=== PATIENT | female | born 1965 | race Caucasian/White ===

== ENCOUNTER → 2018-09-29 | Outpatient (CLI) | payer BC ==
--- NOTE | 2018-10-09 10:54 | MM ---
Reason for exam: screening (asymptomatic). Last mammogram was performed 1 year and 4 months ago. History: Patient is postmenopausal. Physical Findings: A clinical breast exam by your physician is recommended on an annual basis and results should be correlated with mammographic findings. MG 3D Screening Mammo W/Cad Bilateral CC and MLO view(s) were taken. Prior study comparison: June 03, 2017, mammogram, performed at [place]. March 28, 2016, mammogram, performed at [place]. The breast tissue is heterogeneously dense. This may lower the sensitivity of mammography. Stable benign calcifications. There is no discrete abnormality including area of concern. No significant changes when compared with prior studies. ASSESSMENT: Benign, BI-RAD 2 RECOMMENDATION: Routine screening mammogram of both breasts in 1 year.
== END ==
LOC: RADMAMWWP 16:03
PROVIDERS: ATTEND Family Medicine
DX: Z12.31 Encounter for screening mammogram for malignant neoplasm of breast (principal)
CPT/HCPCS: 77063; 77067

== ENCOUNTER → 2019-08-03 | Outpatient (CLI) | payer BC ==
--- NOTE | 2019-08-04 08:15 | BD ---
EXAMINATION TYPE: Axial Bone Density DATE OF EXAM: 08/03/2019 COMPARISON: NONE CLINICAL HISTORY: N 95.1 Height: 62 IN Weight: 106 LBS FRAX RISK QUESTIONS: Secondary Osteoporosis: Current Tobacco Use: YES RISK FACTORS HISTORY OF: Active: YES Postmenopausal woman: AGE 49 MEDICATIONS: EXAM MEASUREMENTS: Bone mineral densitometry was performed using the rag & bone System. Bone mineral density as measured about the Lumbar spine is: ----- L1-L4(G/cm2): 0.910 T Score Values are as follows: ----- L2: -2.6 ----- L3: -2.6 ----- L4: -1.9 ----- L1-L4: -2.2 Bone mineral density BASELINE Bone mineral density about the R hip (g/cm2): 0.702 Bone mineral density about the L hip (g/cm2): 0.767 T Score values are as follows: -----R Neck: -2.4 -----L Neck: -1.9 -----R Total: -2.2 -----L Total: -1.4 Bone mineral density BASELINE IMPRESSION: Osteoporosis (T Score less than -2.5). There is increased fracture risk and therapy is usually indicated based on age. Re-Screen 1-2 years. NOTE: T-SCORE=SD OF THE YOUNG ADULT MEAN.
== END | disposition home or self-care (01) ==
LOC: RADBDWWP 16:05
PROVIDERS: ATTEND Family Medicine
DX: M81.0 Age-related osteoporosis without current pathological fracture (principal)
CPT/HCPCS: 77080

== ENCOUNTER → 2020-04-13 | Outpatient (CLI) | payer BC ==
--- NOTE | 2020-04-14 13:38 | MM ---
Reason for exam: screening (asymptomatic). Last mammogram was performed 1 year and 6 months ago. History: Patient is postmenopausal. Physical Findings: A clinical breast exam by your physician is recommended on an annual basis and results should be correlated with mammographic findings. MG 3D Screening Mammo W/Cad Bilateral CC and MLO view(s) were taken. Prior study comparison: September 29, 2018, bilateral MG 3d screening mammo w/cad. June 03, 2017, mammogram, performed at [place]. The breast tissue is heterogeneously dense. This may lower the sensitivity of mammography. No significant changes when compared with prior studies. ASSESSMENT: Benign, BI-RAD 2 RECOMMENDATION: Routine screening mammogram of both breasts in 1 year.
== END | disposition home or self-care (01) ==
LOC: RADMAMWWP 07:37
PROVIDERS: ATTEND Family Medicine
DX: Z12.31 Encounter for screening mammogram for malignant neoplasm of breast (principal)
CPT/HCPCS: 77063; 77067

== ENCOUNTER → 2022-01-04 | Outpatient (CLI) | payer OTHER ==
--- NOTE | 2022-01-04 11:00 | XR ---
EXAMINATION TYPE: XR chest 2V DATE OF EXAM: 01/04/2022 COMPARISON: NONE HISTORY: COPD. TECHNIQUE: Frontal and lateral views of the chest are obtained. FINDINGS: Pectus excavatum deformity on lateral view. Small hyperdense roughly 5 mm nodule in the ri ght mid lung laterally and likely anteriorly favors benign etiology. Correlate with old outside x-ray if available to confirm. There is no focal air space opacity, pleural effusion, or pneumothorax seen . The cardiac silhouette size is within normal limits. The osseous structures are intact. IMPRESSION: No acute cardiopulmonary process.
== END | disposition home or self-care (01) ==
LOC: RADXRMAIN 10:40
PROVIDERS: ATTEND Internal Medicine
DX: J44.9 Chronic obstructive pulmonary disease, unspecified (principal)
CPT/HCPCS: 71046

== ENCOUNTER → 2022-01-29 | Outpatient (CLI) | payer OTHER | END | disposition home or self-care (01) | LOC: CPPFTMAIN 11:07 | PROVIDERS: ATTEND Internal Medicine | DX: J44.9 Chronic obstructive pulmonary disease, unspecified (principal) | CPT/HCPCS: 94060; 94726; 94729 ==

== ENCOUNTER → 2022-03-29 | Outpatient (CLI) | payer OTHER ==
[2022-03-29 10:07] VITALS: BP 116/60; PULSE 60; RESP 16; TEMP 98.3
--- NOTE | 2022-03-29 10:56 | P.GSHP ---
History of Present Illness H&P Date: 03/29/22 Chief Complaint: ultrasound abnormality right breast Renea is a 56 year old white female seen in consultation for Dr. Harris regarding an ultrasound abnormality in her right breast. She had a bilateral mammogram on 03-28-22 which was BIRAD 2, however an ultrasound was done of the right breast which revealed a 0.6 by 0.5 cm lesion for which core biopsy was recommended. The patient does not feel any lumps masses or nodules of concern in either breast. She does not complain of any nipple discharge or skin changes. She has had dense breasts for many years and has had evaluation in [place] in the past and became frustrated because of further surveillance. Her mst recent mammogram was 2 years ago. Caffiene: 6-10 cups coffee/day; drinks mountain dew nicotine: smokes 3 cigarettes/day used to smoke 1 PPD for 45 years trying to stop chocolate: none BCP: 1 year in 's Familhy History: sister: bladder cancer brother: of lung cancer Hormonal History: menarche: 11 , breast fed: no, first born at 17 menopause: 50 hormones: none Surgical history: Tubal ligation Bunionectomy right foot Medical history: DJD emphysema Small aortic aneurysm being followed Social History: nicotine: trying to stop; used to smoke 1 PPD alcohol; none drugs: none - Constitutional Constitutional: Reports sweats - EENT Eyes: denies blurred vision, denies pain Ears: deny: decreased hearing, tinnitus Ears, nose, mouth and throat: Denies headache, Denies sore throat - Breasts Breasts: bilateral: as per HPI - Cardiovascular Cardiovascular: Denies chest pain, Denies shortness of breath - Respiratory Comment: Emphysema, patient smoker but trying to stop - Gastrointestinal Gastrointestinal: Denies abdominal pain, Denies diarrhea, Denies nausea, Denies vomiting - Genitourinary (Female) Genitourinary: Reports kidney stones, Denies dysuria, Denies hematuria - Menstruation Menstruation: Reports postmenopausal - Musculoskeletal Musculoskeletal: Reports as per HPI - Integumentary Integumentary: Reports rash - Neurological Neurological: Denies numbness, Denies weakness - Psychiatric Psychiatric: Reports anxiety, Reports depression - Endocrine Endocrine: Reports fatigue - Hematologic/Lymphatic Comment: none - Allergic/Immunologic Allergic/Immunologic: Reports seasonal allergies Past Medical History History of Any Multi-Drug Resistant Organisms: None Reported Smoking Status: Current some day smoker Medications and Allergies Home Medications Medication Instructions Recorded Confirmed Type Sertraline [Zoloft] 50 mg PO DAILY 03/29/22 03/29/22 History Tiotropium [place] [Spiriva] 18 mcg IH DAILY 03/29/22 03/29/22 History Allergies Allergy/AdvReac Type Severity Reaction Status Date / Time No Known Allergies Allergy Unverified 03/29/22 10:04 Surgical - Exam Vital Signs Temp Pulse Resp BP Pulse Ox 98.3 F 60 16 116/60 99 03/29/22 10:04 03/29/22 10:04 03/29/22 10:04 03/29/22 10:04 03/29/22 10:04 - General no distress - Eyes normal ocular movement - Neck trachea midline - Respiratory bilateral ronchi normal respiratory effort - Cardiovascular Rhythm: regular Heart Sounds: normal: S1, S2 - Abdomen Abdomen: soft, non tender, no guarding, no rigid, no rebound - Neurologic no disoriented, no combative - Musculoskeletal normal gait - Psychiatric Breast Exam: BRA: 36B Inspection: grade 2/3 ptosis bilateral Palpation: Right breast: Post positional exam fibrocystic changes, no discrete dominant masses or nodules of concern, nodularity at the 9 o'clock position is most likely fibrocystic in nature Right axilla: No adenopathy of concern Left breast: Multi-positional exam fibrocystic changes no discrete dominant masses or nodules of concern Left axilla: No adenopathy of concern Results Patient had bilateral mammogram and bilateral breast ultrasound performed on . A 0.6 x 0.5 cm round circumscribed lesion was seen at the 9 o'clock position of the right breast on ultrasound but not seen on mammogram. It was recommended the patient undergo a core biopsy either radiologist. Assessment and Plan Assessment: Impression: DJD emphysema rash over back abnormal ultrasound right breast fibrocystic breast changes Plan: ultrasound core biopsy of right breast 9 OClock follow up after biopsy Risk and benefit of the procedure discussed with the patient. She understands and wishes to proceed. CC: Dr. Harris
== END | disposition home or self-care (01) ==
LOC: WWCWWP 09:54
PROVIDERS: ATTEND Surgery
DX: Z53.9 Procedure and treatment not carried out, unspecified reason (principal)

== ENCOUNTER → 2022-05-31 | Day surgery (SDC) | payer OTHER ==
--- NOTE | 2022-06-06 11:10 | MM ---
Reason for Exam: Post Procedure Mammogram. Last mammogram was performed 2 year(s) and 2 month(s) ago. Patient History: Menarche at age 10. First Full-Term at age 17. Postmenopausal. Risk Values: Zee 5 year model risk: 1.0%. NCI Lifetime model risk: 5.5%. Prior Study Comparison: 06/03/2017 Screening Mammogram, [place]. 09/29/2018 Bilateral Screening Mammogram, [facility]. 04/13/2020 Bilateral Screening Mammogram, [facility]. Tissue Density: Right: The breast tissue is heterogeneously dense. This may lower the sensitivity of mammography. Pathology Description: Location: 9 o'clock, upper outer quadrant. Marker Left Behind. Needle Type: Mammotome Cores: 3 Skin Nicks: 1 Gauge: 13 The procedure of ultrasound guided core biopsy was explained to the patient. Benefits, alternatives, and risks were discussed. An informed consent was then obtained. A timeout was performed. The patient was placed in supine positioning for imaging and for the procedure. The overlying skin was prepped and draped in usual sterile fashion. Lidocaine was used as anesthetic into the skin and subcutaneous tissue up to area of concern in the right breast. A small skin donnie was made with surgical scalpel. Under ultrasound guidance, a 12-gauge vacuum assisted biopsy gun device was used to obtain 3 core samples. A biopsy clip was left in lesion. Butterfly Hydromark core marker was placed. The patient tolerated the procedure well without any immediate complication. The patient was kept in the radiology department for short stay after the procedure and then discharged home in stable condition. Postprocedure mammogram: The patient was transferred to mammography for physician ordered post procedure mammogram for clip placement verification. Marker is in the expected region for the biopsy. Impression: Successful ultrasound guided core biopsy of area of concern in the right breast, full pathology results to follow. Recommendations: 1. Recommendations are pending pathology results. Pathology Results: Result: Benign, Fibrocystic change. RIGHT BREAST, 9:00, ULTRASOUND GUIDED NEEDLE CORE BIOPSY: Fibrocystic changes including cysts, fibrosis and apocrine metaplasia. Overall Assessment: Benign Assessment: MG diagnostic mammo RT wo CAD - Right: Benign, BI-RAD 2. Management: Diagnostic Breast Ultrasound of the right breast in 6 months. Electronically signed and approved by: Smooth Morrison D.O. Radiologis
== END ==
LOC: RADUSWWP 09:56
PROVIDERS: ATTEND Surgery
DX: N60.81 Other benign mammary dysplasias of right breast (principal); N60.11 Diffuse cystic mastopathy of right breast
CPT/HCPCS: 88305; 77065; 19083; A4648

== ENCOUNTER → 2022-06-07 | Outpatient (CLI) | payer OTHER ==
[2022-06-07 10:59] VITALS: BP 120/60; PULSE 85; RESP 17; TEMP 96.9
--- NOTE | 2022-06-07 11:11 | P.PN ---
Subjective Progress Note Date: 06/07/22 Principal diagnosis: fibrocystic breast changes Renea is a 57 year old white female status post ultrasound core biopsy of the right breast on 05-31-22. This was felt to be benign concordant. She tolerated the biopsy without difficulty. Objective - Vital Signs Vital signs: Vital Signs Temp 96.9 F L 06/07/22 10:57 Pulse 85 06/07/22 10:57 Resp 17 06/07/22 10:57 BP 120/60 06/07/22 10:57 Pulse Ox 97 06/07/22 10:57 FiO2 Intake & Output 06/06/22 06/07/22 06/07/22 18:59 06:59 18:59 Weight 52.163 kg - Constitutional General appearance: Present: cooperative - EENT Eyes: Present: EOMI ENT: Present: hearing grossly normal - Neck Neck: Present: normal ROM - Respiratory Respiratory: bilateral: CTA - Cardiovascular Heart sounds: normal: S1, S2 - Integumentary Integumentary Comment(s): Mild ecchymosis of biopsy site right breast no evidence of infection Integumentary: Present: normal turgor Assessment and Plan Assessment: Impression: Area of concern right breast status post core biopsy benign felt to be benign concordant by Dr. Morrison Plan: Repeat right breast mammogram and ultrasound in 6 months with physician exam at that time Cc: Dr. Harris
== END ==
LOC: WWCWWP 10:44
PROVIDERS: ATTEND Surgery
DX: Z98.890 Other specified postprocedural states (principal)

== ENCOUNTER → 2022-07-15 | Outpatient (CLI) | payer OTHER ==
--- NOTE | 2022-07-15 12:27 | XR ---
EXAMINATION TYPE: XR chest 2V DATE OF EXAM: 07/15/2022 12:21 PM COMPARISON: Chest radiographs from 01/04/2022 TECHNIQUE: XR chest 2V Frontal and lateral views of the chest. CLINICAL INDICATION:Female, 57 years old with history of R05.9 COUGH; FINDINGS: Lungs/Pleura: There is no evidence of pleural effusion, focal consolidation, or pneumothorax. Stable calcified granuloma in the right midlung. Pulmonary vascularity: Unremarkable. Heart/mediastinum: Cardiomediastinal silhouette is unremarkable. Musculoskeletal: No acute osseous pathology. Pectus excavatum deformity are demonstrated. IMPRESSION: No acute cardiopulmonary disease/process. No significant change from prior examination.
== END | disposition home or self-care (01) ==
LOC: RADXRMAIN 12:11
PROVIDERS: ATTEND Internal Medicine
DX: R05.9 Cough, unspecified (principal)
CPT/HCPCS: 71046

== ENCOUNTER → 2022-10-18 | Outpatient (CLI) | payer OTHER ==
--- NOTE | 2022-10-18 14:20 | XR ---
EXAMINATION TYPE: XR lumbar spine 2 or 3V DATE OF EXAM: 10/18/2022 COMPARISON: None HISTORY: Chronic low back pain TECHNIQUE: 3 view lumbar spine FINDINGS: There are 5 lumbar-type vertebral bodies. Pedicles are intact. Disc heights are preserved. Vertebral body heights are preserved. Vascular calcifications within the aorta. There is a mild scoli osis with convexity to the right centered at L3. In the lateral projection there is a calcification a t the level of L3 of uncertain etiology could be renal or ureteral stone. Stool identified in the fro ntal projection IMPRESSION: 1. No acute osseous abnormality lumbar spine. 2. There may be a small calcification in the approximate level of L3 on the lateral projections.
== END | disposition home or self-care (01) ==
LOC: RADXRMAIN 13:48
PROVIDERS: ATTEND Internal Medicine
DX: M54.50 Low back pain, unspecified (principal); G89.29 Other chronic pain
CPT/HCPCS: 72100

== ENCOUNTER → 2022-11-07 | Outpatient (CLI) | payer OTHER ==
--- NOTE | 2022-11-07 17:49 | US ---
EXAMINATION TYPE: US kidneys/renal and bladder DATE OF EXAM: 11/07/2022 COMPARISON: NONE CLINICAL INDICATION: Female, 57 years old with history of N20.0 NEPHROLITHIASIS; Hx of kidney stones EXAM MEASUREMENTS: Right Kidney: 8.1x3.8x4.7 cm Left Kidney: 10.2x5.5x4.7 cm Right Kidney: No hydronephrosis or masses seen Left Kidney: No hydronephrosis or masses seen Bladder: wnl Bilateral Jets seen: Yes IMPRESSION: No hydronephrosis.
--- NOTE | 2022-11-07 19:40 | MR ---
EXAMINATION TYPE: MR lumbar spine wo con DATE OF EXAM: 11/07/2022 COMPARISON: Lumbar spine radiograph 10/18/2022 HISTORY: Low back pain into left leg TECHNIQUE: Multiplanar, multisequence images of the lumbar spine were acquired without IV contrast. FINDINGS: Lumbar segments are intact. No paraspinal masses are identified. Conus medullaris has a normal appe arance. 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 Rudimentary disc at S1-S2. Disc desiccation is present at L3-4, L4-5, L5-S1. T12-L1: No herniation, protrusion or disc bulging. No canal stenosis is present. Foramina are paten t bilaterally. L1-L2: No herniation, protrusion or disc bulging. No canal stenosis is present. Foramina are patent bilaterally. L2-L3: No herniation, protrusion or disc bulging. No canal stenosis is present. Foramina are patent bilaterally. L3-L4: No herniation, protrusion or disc bulging. No canal stenosis is present. Foramina are patent bilaterally. L4-L5: Broad-based disc bulge without significant central canal stenosis. Mild bilateral facet arthro michael. Foramina are patent bilaterally. L5-S1: Broad-based disc bulge without significant central canal stenosis. Minimal bilateral facet art hropathy. The neural foramina are patent bilaterally. IMPRESSION: 1. No disc herniation or significant central canal stenosis. 2. Mild degenerative disc disease at L4-L5 and L5-S1.
== END | disposition home or self-care (01) ==
LOC: RADUSWWP 14:32
PROVIDERS: ATTEND Internal Medicine
DX: N20.0 Calculus of kidney (principal); M54.40 Lumbago with sciatica, unspecified side; M51.37 Other intervertebral disc degeneration, lumbosacral region
CPT/HCPCS: 72148; 76770

== ENCOUNTER → 2022-12-26 | Outpatient (CLI) | payer OTHER ==
--- NOTE | 2022-12-26 11:05 | MM ---
Reason for Exam: Follow-up at short interval from prior study. Last screening mammogram was performed 9 month(s) ago. Patient History: Menarche at age 10. First Full-Term at age 17. Postmenopausal. 05/31/2022, Benign US biopsy breast VAD RT on the right side. Risk Values: Zee 5 year model risk: 1.2%. NCI Lifetime model risk: 6.4%. Prior Study Comparison: 03/28/2016 Screening Mammogram, [place]. 06/03/2017 Screening Mammogram, [place]. 09/29/2018 Bilateral Screening Mammogram, [facility]. 04/13/2020 Bilateral Screening Mammogram, [facility]. 05/31/2022 Right MG diagnostic mammo RT wo CAD, [facility]. Tissue Density: Right: The breast tissue is heterogeneously dense. This may lower the sensitivity of mammography. Findings: Analyzed By CAD. No new suspicious mass or group of calcifications within the right breast. Vascular benign calcifications demonstrated. Previous mammotome biopsy within the right breast. Overall Assessment: Incomplete: need additional imaging evaluation, BI-RAD 0 Management: Diagnostic Breast Ultrasound of the right breast. A clinical breast exam by your physician is recommended on an annual basis and results should be correlated with mammographic findings. This exam should not preclude additional follow-up of suspicious palpable abnormalities. Results were given to the patient verbally at the time of exam. Note on Zee scores and lifetime risk: 1. A Zee score greater than 3% is considered moderate risk. If this is the case, consider specialist referral to assess eligibility for a risk reducing agent. If overall lifetime risk for the development of breast cancer is 20% or higher, the patient may qualify for future screening with alternating mammogram and breast MRI. Electronically signed and approved by: Mike Marie D.O.
--- NOTE | 2022-12-26 11:22 | USB ---
Patient History: Menarche at age 10. First Full-Term at age 17. Postmenopausal. 05/31/2022, Benign US biopsy breast VAD RT on the right side. Risk Values: Zee 5 year model risk: 1.2%. NCI Lifetime model risk: 6.4%. Technique: Method: Targeted. Prior Study Comparison: 09/29/2018 Bilateral Screening Mammogram, [facility]. 04/13/2020 Bilateral Screening Mammogram, [facility]. 05/31/2022 Right MG diagnostic mammo RT wo CAD, [facility]. Findings: The lateral section of the breast of the right breast, the axilla of the right breast and the retroareolar of the right breast were scanned. Targeted ultrasound of the right breast at 9:00 2 cm from the nipple at prior site of biopsy was performed. Additional evaluation of the nipple and axilla was performed. Previously seen mass within the right breast at 9:00 2 cm from the nipple is not visualized with only the biopsy clip identified. Overall Assessment: Benign, BI-RAD 2 Management: Screening Mammogram of both breasts in 6 months. A clinical breast exam by your physician is recommended on an annual basis and results should be correlated with mammographic findings. This exam should not preclude additional follow-up of suspicious palpable abnormalities. Results were given to the patient verbally at the time of exam. Electronically signed and approved by: Mike Marie D.O.
[2022-12-26 20:04] LABS: Blood Urea Nitrogen 6.3 mg/dL (9.0-27.0); C Reactive Protein <0.30 mg/dL (0.00-0.80); Chloride 105 mmol/L (96-109); Chol/HDL Ratio 4.71 Ratio; Glucose 82 mg/dL (70-110); LDL Cholesterol,Calculated 141.4 mg/dL (0.0-131.0); Potassium 4.2 mmol/L (3.5-5.5); Sodium 143 mmol/L (135-145); Uric Acid 3.1 mg/dL (2.9-7.7)
[2022-12-26 20:05] LABS: ALT 15 U/L (8-44); AST 21 U/L (13-35); Albumin 4.5 d/dL (3.8-4.9); Albumin/Globulin Ratio 2.05 Ratio (1.60-3.17); Alkaline Phosphatase 71 U/L (41-126); Calcium 9.3 mg/dL (8.7-10.3); Carbon Dioxide 24.5 mmol/L (21.6-31.8); Globulin 2.2 d/dL (1.6-3.3); Total Bilirubin 0.3 mg/dL (0.3-1.2); Total Protein 6.7 d/dL (6.2-8.2)
[2022-12-26 20:22] LABS: Albumin 4.4 d/dL (3.8-4.9); Protein, Total 6.5 d/dL (6.2-8.2)
[2022-12-26 21:20] LABS: Basophils # (A) 0.06 X 10*3/uL (0.00-0.10); Basophils % (A) 0.9 %; Eosinophils % (A) 1.6 %; HCT 43.6 % (37.2-46.3); HGB 13.6 d/dL (12.0-15.0); Lymphocytes # (A) 1.63 X 10*3/uL (0.90-5.00); Lymphocytes % (A) 25.4 %; MCH 29.9 pg (27.0-32.0); MCHC 31.2 d/dL (32.0-37.0); MCV 95.8 FL (80.0-97.0); Mean Platelet Volume 12.3 FL (9.5-12.2); Monocytes # (A) 0.32 X 10*3/uL (0.20-1.00); NRBC Per 100 WBC 0 X 10*3/uL (0.00-0.01); Neutrophils # (A) 4.28 X 10*3/uL (1.80-7.70); Neutrophils % (A) 66.8 %; Platelet Count 268 X 10*3/uL (140-440); RBC 4.55 X 10*6/uL (4.10-5.20); RDW 13.3 % (11.5-14.5); WBC 6.41 X 10*3/uL (4.50-10.00)
[2022-12-26 21:38] LABS: Erythrocyte Sedimentation Rate 24 mm/Hr (0-30)
[2022-12-26 22:58] LABS: Gliadin AB IgA, Deaminated Negative (Negative); Gliadin AB IgA, Unit 2.3 U/mL; Gliadin AB IgG, Deaminated Negative (Negative); Gliadin AB IgG, Unit <0.4 U/mL
[2022-12-27 20:39] LABS: Gamma Globulin 0.64 d/dL (0.70-1.50)
== END | disposition home or self-care (01) ==
LOC: RADMAMWWP 10:23
PROVIDERS: ATTEND Surgery
DX: R92.8 Other abnormal and inconclusive findings on diagnostic imaging of breast (principal); Z78.0 Asymptomatic menopausal state; N20.0 Calculus of kidney; M81.0 Age-related osteoporosis without current pathological fracture; M54.40 Lumbago with sciatica, unspecified side; K52.9 Noninfective gastroenteritis and colitis, unspecified
CPT/HCPCS: 80061; 80053; 85652; 84443; 82607; 82746; 84550; 85025; 86140; 84165; 82306; 83516 ×4; 77065; 76642; G0279; 77061

== ENCOUNTER → 2023-07-07 | Outpatient (CLI) | payer OTHER ==
--- NOTE | 2023-07-07 14:31 | XR ---
EXAMINATION TYPE: XR chest 2V DATE OF EXAM: 07/07/2023 COMPARISON: 07/15/2022 INDICATION: Cough COPD TECHNIQUE: Frontal and lateral views of the chest are obtained. FINDINGS: The heart size is normal. The pulmonary vasculature is normal. There is hyperinflation with an increased AP diameter compatible with COPD. Punctate densities within the periphery of the right mid lung, stable from comparison. IMPRESSION: 1. COPD. 2. Stable appearing punctate nodule peripheral right midlung. Follow-up exam in 6 months is recommend ed.
== END | disposition home or self-care (01) ==
LOC: RADXRMAIN 13:22
PROVIDERS: ATTEND Internal Medicine
DX: J44.1 Chronic obstructive pulmonary disease with (acute) exacerbation (principal); R91.1 Solitary pulmonary nodule
CPT/HCPCS: 71046

== ENCOUNTER → 2023-07-15 | Outpatient (CLI) | payer OTHER ==
--- NOTE | 2023-07-16 19:55 | MM ---
Reason for Exam: Screening (asymptomatic). Last mammogram was performed 1 year(s) and 4 month(s) ago. Patient History: Menarche at age 10. First Full-Term at age 17. Postmenopausal. 05/31/2022, Benign US biopsy breast VAD RT on the right side. Risk Values: Zee 5 year model risk: 1.2%. NCI Lifetime model risk: 6.3%. Prior Study Comparison: 03/28/2022 Bilateral Diagnostic Mammogram, [facility]. 05/31/2022 Right MG diagnostic mammo RT wo CAD, [facility]. 12/26/2022 Right MG 3D diag mammo w/cad RT, [facility]. Tissue Density: The breast tissue is heterogeneously dense. This may lower the sensitivity of mammography. Findings: Analyzed By CAD. Unchanged asymmetric density superiorly left MLO view. There is no suspicious group of microcalcifications or new suspicious mass in either breast. Overall Assessment: Benign, BI-RAD 2 Management: Screening Mammogram of both breasts in 1 year. . Patient should continue monthly self-breast exams. A clinical breast exam by your physician is recommended on an annual basis. This exam should not preclude additional follow-up of suspicious palpable abnormalities. Note on Zee scores and lifetime risk: 1. A Zee score greater than 3% is considered moderate risk. If this is the case, consider specialist referral to assess eligibility for a risk reducing agent. 2. If overall lifetime risk for the development of breast cancer is 20% or higher, the patient may qualify for future screening with alternating mammogram and breast MRI. Electronically signed and approved by: Debra Myers M.D. Radiologist
== END | disposition home or self-care (01) ==
LOC: RADMAMWWP 12:19
PROVIDERS: ATTEND Internal Medicine
DX: Z12.31 Encounter for screening mammogram for malignant neoplasm of breast (principal); Z78.0 Asymptomatic menopausal state
CPT/HCPCS: 77063; 77067

== ENCOUNTER → 2023-07-26 | Outpatient (CLI) | payer OTHER ==
--- NOTE | 2023-07-26 15:28 | MR ---
EXAMINATION TYPE: MR cervical spine wo con DATE OF EXAM: 07/26/2023 COMPARISON: None HISTORY: Neck pain, RUE radiculopathy. CONTRAST: Performed utilizing 0 mL intravenous Gadavist gadolinium contrast. TECHNIQUE: Multiplanar multiecho imaging on a 3.0 Faviola magnet is performed through the cervical spin e. FINDINGS: The craniovertebral junction is normal. Vertebral body alignment is normal. C7-T1: No focal disc herniation or significant disc bulge is evident. No spinal canal stenosis or n eural foraminal stenosis is present. C6-7: Disc bulge has mild intrathecal sac compression. No cord contact is evident. No spinal canal st enosis present. Neural foramen are patent.. C5-6: Broad-based disc bulges moderate anterior thecal sac compression. No cord contact or spinal can al stenosis present. Uncovertebral joint hypertrophy is present with moderate bilateral foraminal kiki nosis.. C4-5: There is a right paracentral disc bulge with moderate intrathecal sac compression. No AP spinal canal stenosis present. No cord contact is evident. Neural foramen are patent.. C3-4: There is a central subligamentous disc herniation without cord contact or spinal canal stenosis . This is [id number] anterior thecal sac impression. Some additional broad-based disc bulge gre ater in the left paracentral region has minimal anterior thecal sac compression. No cord contact or s olegario canal stenosis is present.. C2-3: No focal disc herniation or significant disc bulge is evident. No spinal canal stenosis or aminah ral foraminal stenosis is present. IMPRESSION: 1. Disc bulging with anterior thecal sac impression C3-4 through C6-7. This may be greatest at the C5 -6 level without cord contact or spinal canal stenosis. 2. Foraminal narrowing greatest at moderate C5-6 bilaterally.
== END | disposition home or self-care (01) ==
LOC: RADMRIMAIN 14:31
PROVIDERS: ATTEND Internal Medicine
DX: M99.71 Connective tissue and disc stenosis of intervertebral foramina of cervical region (principal); M50.11 Cervical disc disorder with radiculopathy, high cervical region
CPT/HCPCS: 72141

== ENCOUNTER 2023-10-31 12:27 | Emergency (ER) | payer OTHER ==
[2023-10-31 13:16] VITALS: BP 133/83; PULSE 60; RESP 20; TEMP 98.1
--- NOTE | 2023-10-31 13:20 | ED ---
General Adult HPI - General Chief complaint: Chest Pain Stated complaint: Chest pain,Vomiting Time Seen by Provider: 10/31/23 12:35 Source: patient, RN notes reviewed, old records reviewed Mode of arrival: ambulatory Limitations: no limitations - History of Present Illness Initial comments: This is a 58-year-old female who presents to the emergency department stating she has really bad reflux. Patient states getting much worse and now it is up into her chest. Patient states she has some chest discomfort and she is concerned that it could potentially be her heart and she is just calling her reflux. Patient states that it is a burning sensation. Patient denies any diaphoretic episode patient denies any shortness of breath or difficulty breathi ng. Patient denies any nausea. Patient has any back pain. Patient Nuys any abdominal pain. Patient Nuys any recent fever chills or cough. - Related Data Home Medications Medication Instructions Recorded Confirmed Sertraline [Zoloft] 50 mg PO DAILY 03/29/22 06/07/22 Tiotropium Moro [Spiriva] 18 mcg IH DAILY 03/29/22 06/07/22 Allergies Allergy/AdvReac Type Severity Reaction Status Date / Time No Known Allergies Allergy Unverified 10/31/23 12:36 Review of Systems ROS Statement: Those systems with pertinent positive or pertinent negative responses have been documented in the HPI. ROS Other: All systems not noted in ROS Statement are negative. Past Medical History Past Medical History: COPD, GERD/Reflux History of Any Multi-Drug Resistant Organisms: None Reported Past Surgical History: Tubal Ligation Additional Past Surgical History / Comment(s): Right foot surgery Past Anesthesia/Blood Transfusion Reactions: No Reported Reaction Past Psychological History: Anxiety, Depression Smoking Status: Former smoker Past Alcohol Use History: None Reported Past Drug Use History: Marijuana General Exam - General Exam Comments Initial Comments: GENERAL: Patient is well-developed and well-nourished. Patient is nontoxic and well- hydrated and is in mild distress. ENT: Neck is soft and supple. No significant lymphadenopathy is noted. Oropharynx is clear. Moist mucous membranes. Neck has full range of motion without eliciting any pain. EYES: The sclera were anicteric and conjunctiva were pink and moist. Extraocular movements were intact and pupils were equal round and reactive to light. Eyelids were unremarkable. PULMONARY: Unlabored respirations. Good breath sounds bilaterally. No audible rales rhonchi or wheezing was noted. CARDIOVASCULAR: There is a regular rate and rhythm without any murmurs gallops or rubs. ABDOMEN: Soft and nontender with normal bowel sounds. SKIN: Skin is clear with no lesions or rashes and otherwise unremarkable. NEUROLOGIC: Patient is alert and oriented x3. Cranial nerves II through XII are grossly intact. Motor and sensory are also intact. Normal speech, volume and content. Symmetrical smile. MUSCULOSKELETAL: Normal extremities with adequate strength and full range of motion. LYMPHATICS: No significant lymphadenopathy is noted PSYCHIATRIC: Normal psychiatric evaluation. Limitations: no limitations Course Vital Signs 10/31/23 10/31/23 12:34 13:04 Temperature 98.1 F Pulse Rate 60 Pulse Rate [ [address] ] Respiratory 20 Rate Blood Pressure 133/83 O2 Sat by Pulse 99 Oximetry Medical Decision Making - Medical Decision Making EKG is interpreted by myself. EKG shows a sinus bradycardia 55 bpm parables 154 QRS of 78 QT is 434 QTc is 423. Patient's EKG shows no ST segment elevation or depression. Was pt. sent in by a medical professional or institution (, PA, PHOTO TUBE ASSEMBLER, urgent care, hospital, or intermediate...) When possible be specific @ -No Did you speak to anyone other than the patient for history (EMS, parent, family, police, friend...)? What history was obtained from this source @ -No Did you review nursing and triage notes (agree or disagree)? Why? @ -I reviewed and agree with nursing and triage notes Were old charts reviewed (outside hosp., previous admission, EMS record, old EKG, old radiological studies, urgent care reports/EKG's, intermediate records)? Report findings @ -No old charts were reviewed Differential Diagnosis (chest pain, altered mental status, abdominal pain women, abdominal pain men, vaginal bleeding, weakness, fever, dyspnea, syncope, headache, dizziness, GI bleed, back pain, seizure, CVA, palpatations, mental health, musculoskeletal)? @ -Differential Chest Pain: Stable Angina, Unstable Angina, STEMI, NSTEMI Aortic Dissection, Pneumothorax, Musculoskeletal, Esophageal Spasm GERD, Cholecystitis, Pancreatitis, Zoster, this is not meant to be an all-inclusive list. EKG interpreted by me (3pts min.). @ -As above X-rays interpreted by me (1pt min.). @ -Chest x-ray shows no acute normality CT interpreted by me (1pt min.). @ -None done U/S interpreted by me (1pt. min.). @ -None done What testing was considered but not performed or refused? (CT, X-rays, U/S, labs)? Why? @ -None What meds were considered but not given or refused? Why? @ -None Did you discuss the management of the patient with other professionals (professionals i.e. Dr., PA, PHOTO TUBE ASSEMBLER, lab, RT, psych nurse, addiction social worker, it manager, teacher, bsa/aml compliance officer, case managers)? Give summary @ -No Was smoking cessation discussed for >3mins.? @ -No Was critical care preformed (if so, how long)? @ -No Were there social determinants of health that impacted care today? How? (Homelessness, low income, unemployed, alcoholism, drug addiction, transportation, low edu. Level, literacy, decrease access to med. care, [facility], rehab)? @ -No Was there de-escalation of care discussed even if they declined (Discuss DNR or withdrawal of care, Hospice)? DNR status @ -No What co-morbidities impacted this encounter? (DM, HTN, Smoking, COPD, CAD, Cancer, CVA, ARF, Chemo, Hep., AIDS, mental health diagnosis, sleep apnea, morbid obesity)? @ -None Was patient admitted / discharged? Hospital course, mention meds given and route, prescriptions, significant lab abnormalities, going to OR and other pert inent info. @ -Patient's lab work showed an elevated troponin. Went back and spoke with the patient and told her she needed to stay and be put on blood thinners and see the set up inspector she stated she had no one to watch her kids and kids could not be trusted by himself we had a long conversation I told her that if she goes home she could have a massive heart attack and potentially she stated she understood but she could not find anyone to watch her kids so she had to leave. Patient was signed out AMA Undiagnosed new problem with uncertain prognosis? @ -No Drug Therapy requiring intensive monitoring for toxicity (Heparin, Nitro, Insulin, Cardizem)? @ -No Were any procedures done? @ -No Diagnosis/symptom? @ -NSTEMI Acute, or Chronic, or Acute on Chronic? @ -Acute Uncomplicated (without systemic symptoms) or Complicated (systemic symptoms)? @ -Complicated Side effects of treatment? @ -No Exacerbation, Progression, or Severe Exacerbation? @ -No Poses a threat to life or bodily function? How? (Chest pain, [place], [place], pneumonia, PE, COPD, DKA, ARF, appy, cholecystitis, CVA, Diverticulitis, Homicidal, Suicidal, threat to staff... and all critical care pts) @ -Yes this could lead to an [place] and - Lab Data Result diagrams: 10/31/23 13:35 10/31/23 13:35 Lab Results 10/31/23 10/31/23 10/31/23 Range/Units 13:35 13:35 13:35 WBC 5.7 (3.8-10.6) k/uL RBC 4.22 (3.80-5.40) m/uL Hgb 12.7 (11.4-16.0) gm/dL Hct 38.5 (34.0-46.0) % MCV 91.2 (80.0-100.0) fL MCH 30.1 (25.0-35.0) pg MCHC 33.0 (31.0-37.0) g/dL RDW 12.9 (11.5-15.5) % Plt Count 256 (150-450) k/uL MPV 8.5 Neutrophils % 79 % Lymphocytes % 14 % Monocytes % 4 % Eosinophils % 1 % Basophils % 1 % Neutrophils # 4.5 (1.3-7.7) k/uL Lymphocytes # 0.8 L (1.0-4.8) k/uL Monocytes # 0.2 (0-1.0) k/uL Eosinophils # 0.1 (0-0.7) k/uL Basophils # 0.0 (0-0.2) k/uL PT 10.3 (10.0-12.5) sec INR 0.9 (<1.2) APTT 24.5 (22.0-30.0) sec D-Dimer 0.29 (<0.60) mg/L FEU Sodium 137 (137-145) mmol/L Potassium 3.9 (3.5-5.1) mmol/L Chloride 106 (98-107) mmol/L Carbon Dioxide 25 (22-30) mmol/L Anion Gap 6 mmol/L BUN 5 L (7-17) mg/dL Creatinine 0.51 L (0.52-1.04) mg/dL Est GFR (CKD-EPI)AfAm >90 (>60 ml/min/1.73 sqM) Est GFR (CKD-EPI)NonAf >90 (>60 ml/min/1.73 sqM) Glucose 88 (74-99) mg/dL Calcium 9.3 (8.4-10.2) mg/dL Magnesium 1.8 (1.6-2.3) mg/dL Total Bilirubin 0.4 (0.2-1.3) mg/dL AST 25 (14-36) U/L ALT 14 (4-34) U/L Alkaline Phosphatase 85 (38-126) U/L Troponin I (0.000-0.034) ng/mL Total Protein 6.4 (6.3-8.2) g/dL Albumin 3.9 (3.5-5.0) g/dL 10/31/23 Range/Units 13:35 WBC (3.8-10.6) k/uL RBC (3.80-5.40) m/uL Hgb (11.4-16.0) gm/dL Hct (34.0-46.0) % MCV (80.0-100.0) fL MCH (25.0-35.0) pg MCHC (31.0-37.0) g/dL RDW (11.5-15.5) % Plt Count (150-450) k/uL MPV Neutrophils % % Lymphocytes % % Monocytes % % Eosinophils % % Basophils % % Neutrophils # (1.3-7.7) k/uL Lymphocytes # (1.0-4.8) k/uL Monocytes # (0-1.0) k/uL Eosinophils # (0-0.7) k/uL Basophils # (0-0.2) k/uL PT (10.0-12.5) sec INR (<1.2) APTT (22.0-30.0) sec D-Dimer (<0.60) mg/L FEU Sodium (137-145) mmol/L Potassium (3.5-5.1) mmol/L Chloride (98-107) mmol/L Carbon Dioxide (22-30) mmol/L Anion Gap mmol/L BUN (7-17) mg/dL Creatinine (0.52-1.04) mg/dL Est GFR (CKD-EPI)AfAm (>60 ml/min/1.73 sqM) Est GFR (CKD-EPI)NonAf (>60 ml/min/1.73 sqM) Glucose (74-99) mg/dL Calcium (8.4-10.2) mg/dL Magnesium (1.6-2.3) mg/dL Total Bilirubin (0.2-1.3) mg/dL AST (14-36) U/L ALT (4-34) U/L Alkaline Phosphatase (38-126) U/L Troponin I 0.137 H* (0.000-0.034) ng/mL Total Protein (6.3-8.2) g/dL Albumin (3.5-5.0) g/dL Critical Care Time Critical Care Time: Yes Total Critical Care Time: 35 Disposition Clinical Impression: Acute non-ST elevation myocardial infarction (NSTEMI) Disposition: LEFT AGAINST MEDICAL ADVICE Referrals: Anmol Harris DO [Primary Care Provider] - 1-2 days Time of Disposition: 14:27
[2023-10-31] MEDS: NITROGLYCERIN OINT 1 INCH/GM PACKET TOPICAL STA (13:48)
[2023-10-31] MEDS: MAG HYDROX/AL HYDROX/SIMETH 30 ML, HYOSCYAMINE ELIXIR 10 ML, LIDOCAINE VISCOUS 2% 10 ML PO STA (13:48)
--- NOTE | 2023-10-31 13:59 | XR ---
EXAMINATION TYPE: XR chest 2V DATE OF EXAM: 10/31/2023 1:52 PM CLINICAL INDICATION:Female, 58 years old with history of Chest Pain; COMPARISON: Chest radiographs from 07/07/2023 TECHNIQUE: XR chest 2V Frontal and lateral views of the chest. FINDINGS: Lungs/Pleura: There is no evidence of pleural effusion, focal consolidation, or pneumothorax. Pulmonary vascularity: Unremarkable. Heart/mediastinum: Cardiomediastinal silhouette is unremarkable. Musculoskeletal: No acute osseous pathology. IMPRESSION: No acute cardiopulmonary disease/process.
[2023-10-31 14:01] LABS: ALT 14 U/L (4-34); AST 25 U/L (14-36); African American GFR (CKD) >90 (>60 ml/min/1.73 sqM); Albumin 3.9 g/dL (3.5-5.0); Alkaline Phosphatase 85 U/L (38-126); Anion Gap 6 mmol/L; Blood Urea Nitrogen 5 mg/dL (7-17); Calcium 9.3 mg/dL (8.4-10.2); Carbon Dioxide 25 mmol/L (22-30); Chloride 106 mmol/L (98-107); Glucose 88 mg/dL (74-99); Magnesium 1.8 mg/dL (1.6-2.3); Non-African American GFR(CKD) >90 (>60 ml/min/1.73 sqM); Potassium 3.9 mmol/L (3.5-5.1); Sodium 137 mmol/L (137-145); Total Bilirubin 0.4 mg/dL (0.2-1.3); Total Protein 6.4 g/dL (6.3-8.2)
[2023-10-31 14:06] LABS: Basophils % (A) 1 %; Eosinophils # (A) 0.1 k/uL (0-0.7); Eosinophils % (A) 1 %; HCT 38.5 % (34.0-46.0); HGB 12.7 gm/dL (11.4-16.0); INR 0.9 (<1.2); Lymphocytes # (A) 0.8 k/uL (1.0-4.8); Lymphocytes % (A) 14 %; MCH 30.1 pg (25.0-35.0); MCV 91.2 fL (80.0-100.0); Mean Platelet Volume 8.5; Monocytes # (A) 0.2 k/uL (0-1.0); Monocytes % (A) 4 %; Neutrophils # (A) 4.5 k/uL (1.3-7.7); Neutrophils % (A) 79 %; Partial Thromboplastin Time 24.5 sec (22.0-30.0); Platelet Count 256 k/uL (150-450); Prothrombin Time 10.3 sec (10.0-12.5); RBC 4.22 m/uL (3.80-5.40); RDW 12.9 % (11.5-15.5); WBC 5.7 k/uL (3.8-10.6)
[2023-10-31] MEDS: ASPIRIN 81 MG PO STA (14:30)
== END 2023-10-31 14:38 | disposition left against medical advice (07) ==
LOC: EC 12:27
DX: I21.4 Non-ST elevation (NSTEMI) myocardial infarction (principal); R00.1 Bradycardia, unspecified; R79.89 Other specified abnormal findings of blood chemistry; Z53.29 Procedure and treatment not carried out because of patient's decision for other reasons; Z87.891 Personal history of nicotine dependence
CPT/HCPCS: 36415; 71046; 80053; 83735; 84484; 85025; 85379; 85610; 85730; 93005; 99285

== ENCOUNTER → 2024-01-14 | Outpatient (CLI) | payer OTHER ==
--- NOTE | 2024-01-14 17:41 | XR ---
EXAMINATION TYPE: XR shoulder complete BILAT DATE OF EXAM: 01/14/2024 5:00 PM CLINICAL INDICATION:Female, 58 years old with history of M25.519 SHOULDER PAIN; [facility] COMPARISON: None TECHNIQUE: XR shoulder complete BILAT; examined in AP, internally rotated and scapular Y projections. FINDINGS: No evidence of acute osseous pathology, joint dislocation, or soft tissue swelling. The remaining po rtions of the visualized chest are unremarkable. Mild degeneration changes of the acromion and dista l clavicle. IMPRESSION: 1. No acute osseous pathology. 2. Mild shoulder osteoarthrosis.
== END | disposition home or self-care (01) ==
LOC: RADXRMAIN 16:42
PROVIDERS: ATTEND Internal Medicine
DX: M19.012 Primary osteoarthritis, left shoulder (principal); M19.011 Primary osteoarthritis, right shoulder

== ENCOUNTER 2024-01-16 16:21 | Emergency (ER) | payer OTHER ==
[2024-01-16 16:41] VITALS: RESP 18; TEMP 97.3
--- NOTE | 2024-01-16 16:43 | ED ---
Back Pain HPI - General Chief Complaint: Back Pain/Injury Stated Complaint: back pain Time Seen by Provider: 01/16/24 16:38 Source: patient, RN notes reviewed Limitations: no limitations - History of Present Illness Initial Comments: This is a 58-year-old female presents to the emergency department chief complaint of lower back pain. Patient states that she was helping her neighbor move furniture and she is felt a pulling sensation of her lower back. She denies radiation of pain, loss of bladder or bowel continence, saddle anesthesias. She states that she felt a popping sensation when this occurred. Patient's pain is exacerbated with bilateral leg movement. She denies paresthesias. Denies previous surgeries on her back. Has a history of degenerative disc disease of the cervical spine. - Related Data Home Medications Medication Instructions Recorded Confirmed Atomoxetine HCl [Strattera] 80 mg PO PC-SUPPER 10/31/23 10/31/23 Sertraline HCl 200 mg PO DAILY 10/31/23 10/31/23 Previous Rx's Medication Instructions Recorded Cyclobenzaprine [Flexeril] 10 mg PO TID PRN #15 tab 01/16/24 Allergies Allergy/AdvReac Type Severity Reaction Status Date / Time No Known Allergies Allergy Verified 01/16/24 16:41 Review of Systems ROS Statement: Those systems with pertinent positive or pertinent negative responses have been documented in the HPI. ROS Other: All systems not noted in ROS Statement are negative. Past Medical History Past Medical History: COPD, GERD/Reflux Additional Past Medical History / Comment(s): DDD, History of Any Multi-Drug Resistant Organisms: None Reported Past Surgical History: Tubal Ligation Additional Past Surgical History / Comment(s): Right foot surgery Past Anesthesia/Blood Transfusion Reactions: No Reported Reaction Past Psychological History: Anxiety, Depression Smoking Status: Former smoker Past Alcohol Use History: None Reported Past Drug Use History: Marijuana General Exam Limitations: no limitations General appearance: alert, in no apparent distress Head exam: Present: atraumatic, normocephalic, normal inspection Eye exam: Present: normal appearance, PERRL, EOMI. Absent: scleral icterus, conjunctival injection, periorbital swelling ENT exam: Present: normal exam, mucous membranes moist Neck exam: Present: normal inspection. Absent: tenderness, meningismus, lymphadenopathy Respiratory exam: Present: normal lung sounds bilaterally. Absent: respiratory distress, wheezes, rales, rhonchi, stridor Cardiovascular Exam: Present: regular rate, normal rhythm, normal heart sounds. Absent: systolic murmur, diastolic murmur, rubs, gallop, clicks GI/Abdominal exam: Present: soft, normal bowel sounds. Absent: distended, tenderness, guarding, rebound, rigid Extremities exam: Present: normal inspection, full ROM, normal capillary refill. Absent: tenderness, pedal edema, joint swelling, calf tenderness Back exam: Present: tenderness (lumbar, bilateral ), muscle spasm (lumbar spine) Expanded Back exam: Absent: saddle anesthesia Neurological exam: Present: alert, oriented X3, CN II-XII intact Psychiatric exam: Present: normal affect, normal mood Course Vital Signs 01/16/24 01/16/24 16:35 18:17 Temperature 97.3 F L Pulse Rate 68 64 Respiratory 18 18 Rate Blood Pressure 115/61 112/84 O2 Sat by Pulse 99 97 Oximetry Medical Decision Making - Medical Decision Making Was pt. sent in by a medical professional or institution (Dr. PA, FOLDING MACHINE FEEDER, urgent care, hospital, or penitentiary...) When possible be specific @ -No Did you speak to anyone other than the patient for history (EMS, parent, family, police, friend...)? What history was obtained from this source @ -No Did you review nursing and triage notes (agree or disagree)? Why? @ -I reviewed and agree with nursing and triage notes Were old charts reviewed (outside hosp., previous admission, EMS record, old EKG, old radiological studies, urgent care reports/EKG's, penitentiary records)? Report findings @ -No old charts were reviewed Differential Diagnosis (chest pain, altered mental status, abdominal pain women, abdominal pain men, vaginal bleeding, weakness, fever, dyspnea, syncope, headache, dizziness, GI bleed, back pain, seizure, CVA, palpatations, mental health, musculoskeletal)? @ -Differential Back Pain: Strain, zoster, cauda equina syndrome, epidural abscess, vertebral osteomyelitis, discitis, fracture, subluxation, disc herniation, DJD, spinal stenosis, dissection, AAA, pancreatitis, peptic ulcer disease, pyelonephritis, kidney stone, this is not meant to be an all-inclusive list. EKG interpreted by me (3pts min.). @ -None X-rays interpreted by me (1pt min.). @ -XR of the lumbar spine reveals no evidence of acute fracture, degenerative disc disease. CT interpreted by me (1pt min.). @ -None done U/S interpreted by me (1pt. min.). @ -None done What testing was considered but not performed or refused? (CT, X-rays, U/S, labs)? Why? @ -None What meds were considered but not given or refused? Why? @ -None Did you discuss the management of the patient with other professionals (professionals i.e. , PA, FOLDING MACHINE FEEDER, lab, RT, psych nurse, outreach and education social worker, cash accounting clerk, teacher, corporate officer, leather case finisher)? Give summary @ -No Was smoking cessation discussed for >3mins.? @ -No Was critical care preformed (if so, how long)? @ -No Were there social determinants of health that impacted care today? How? (Homelessness, low income, unemployed, alcoholism, drug addiction, transportation, low edu. Level, literacy, decrease access to med. care, fdc, rehab)? @ -No Was there de-escalation of care discussed even if they declined (Discuss DNR or withdrawal of care, Hospice)? DNR status @ -No What co-morbidities impacted this encounter? (DM, HTN, Smoking, COPD, CAD, Cancer, CVA, ARF, Chemo, Hep., AIDS, mental health diagnosis, sleep apnea, morbid obesity)? @ -None Was patient admitted / discharged? Hospital course, mention meds given and route, prescriptions, significant lab abnormalities, going to OR and other pertinent info. @ -Discharged. 58-year-old female lumbar back pain. On examination patient's pain is reproducible to the inferior lumbar spine bilaterally. Patient's straight leg test is positive. She denies red flag symptoms. Patient will be sent for x-ray of the lumbar spine provided with muscle relaxer and Toradol. X- ray nonconcerning for acute process. On reevaluation, patient states that her pain is improved. She will be sent a prescription for muscle relaxers and instructed to continue supportive treatment at home with Tylenol, Motrin, heating packs and rest. All questions answered at bedside and strict return parameters discussed with the patient she is verbalized understanding. discussed with Dr. Xiong Undiagnosed new problem with uncertain prognosis? @ -No Drug Therapy requiring intensive monitoring for toxicity (Heparin, Nitro, Insulin, Cardizem)? @ -No Were any procedures done? @ -No Diagnosis/symptom? @ -muscle spasm of lumbar back, lumbar back pain Acute, or Chronic, or Acute on Chronic? @ -acute Uncomplicated (without systemic symptoms) or Complicated (systemic symptoms)? @ -uncomplicated Side effects of treatment? @ -No Exacerbation, Progression, or Severe Exacerbation? @ -No Poses a threat to life or bodily function? How? (Chest pain, [place], [place], pneumonia, PE, COPD, DKA, ARF, appy, cholecystitis, CVA, Diverticulitis, Homicidal, Suicidal, threat to staff... and all critical care pts) @ -No Disposition Clinical Impression: Muscle spasm, Lumbar back pain Disposition: HOME SELF-CARE Condition: Good Instructions (If sedation given, give patient instructions): Muscle Spasm (ED) Additional Instructions: Return to the emergency department if your symptoms worsen or do not improve. Take muscle relaxer as needed for pain. Recommend follow-up with your primary care provider in the next week for further evaluation. Prescriptions: Cyclobenzaprine [Flexeril] 10 mg PO TID PRN #15 tab PRN Reason: Muscle Spasm Is patient prescribed a controlled substance at d/c from ED?: No Referrals: Anmol Harris DO [Primary Care Provider] - 1-2 days Time of Disposition: 18:07
--- NOTE | 2024-01-16 17:22 | XR ---
EXAMINATION TYPE: XR lumbar spine 2 or 3V DATE OF EXAM: 01/16/2024 5:06 PM CLINICAL INDICATION:Female, 58 years old with history of felt 'pop' in lower back while moving catracho ferny; [facility] COMPARISON: None TECHNIQUE: XR lumbar spine 2 or 3V - Frontal, lateral and coned in L5-S1 lateral views of the spine. FINDINGS: No evidence of any acute osseous pathology. No evidence of loss of vertebral body height i s seen. There is normal alignment of the lumbar vertebral bodies. Scattered disc space narrowing. Mul tilevel marginal osteophyte formation throughout the visualized spine. There is facet joint arthropat hy throughout the spine. Mild to moderate neural from stenosis at L5-S1. Atherosclerosis of the arter ial vasculature. IMPRESSION: 1. No acute fracture. 2. Moderate multilevel disc degeneration.
[2024-01-16] MEDS: KETOROLAC 15 MG/ML 1 ML VIAL IM STA (17:29)
[2024-01-16] MEDS: ORPHENADRINE 30 MG/ML 2 ML VIAL IM STA (17:30)
[2024-01-16 18:25] VITALS: BP 112/84; PULSE 64
== END 2024-01-16 18:20 | disposition home or self-care (01) ==
LOC: EC 16:21
DX: M62.830 Muscle spasm of back (principal); Z87.891 Personal history of nicotine dependence; X50.9XXA Other and unspecified overexertion or strenuous movements or postures, initial encounter
CPT/HCPCS: 72100; 99283; 96372 ×2; J2360; J1885

== ENCOUNTER → 2024-07-02 | Outpatient (CLI) | payer MEDICARE ==
[~2024-07-02] MED LIST: REGADENOSON 0.4 MG/5 ML SYRINGE IV PRN
--- NOTE | 2024-07-02 16:05 | NM ---
EXAMINATION TYPE: NM stress lexiscan cardiolite DATE OF EXAM: 07/02/2024 COMPARISON: NONE HISTORY: TECHNIQUE: After the intravenous administration of 8.8 mCi Tc 99m Sestamibi - Cardiolite resting SPE CT images acquired 55 minutes post injection. At peak stress 25.5 mCi Tc 99m Sestamibi - Stress images obtained 30 minutes post injection The patient was stressed with 0.4mg Lexiscan. FINDINGS: There is a fixed defect at the cardiac apex. No reversible stress defects on Spect images Wall motion is normal Ejection fraction is calculated to be 58 %. IMPRESSION: 1. Fixed defect at the cardiac apex. Correlate for small prior infarct. No stress-induced ischemic ch anges. [facility], , 07/02/2024 4:03 PM
--- NOTE | 2024-07-02 18:34 | CA ---
Lexiscan Nuclear Stress Test Report Name: Renea Bernstein Exam Date: 07/02/2024 10:42 Exam Location: [place] Stress Ht (in): 63 Wt (lb): 120 BSA: 1.56 Ordering Phys: Anmol Harris DO Referring Phys: Anmol Harris DO Technologist: HARMONY Age: 59 Gender: F : 1965 Procedure CPT: Indications: I21.4 NON-ST ELEVATION (NSTEMI) MYOCARDIAL INFARCT ICD-10 Codes: Patient History: NSTEMI, SARAHI Medications: Meds past 24 hrs: Pretest Chest Pain: STRESS TEST Lexiscan Protocol Exercise Duration (min:sec): 02:[address] Depressions (mm): Angina Score: Cartagena Score: Resting HR (bpm): 58 Peak HR (bpm): 97 Resting BP (mmHg): 139 / 81 Peak BP (mmHg): 132 / 78 MPHR: 159 Target HR: 135 % MPHR: 61 METS: 1.0 Total Dose: Peak Dose: Atropine: Double Product: 25728 BP Response: Stress Termination: Infusion complete Stress Symptoms: Dyspnea,, Nausea that was resolved with 100mgs aminophylline. Stress Summary: ECG ANALYSIS Resting ECG: Stress ECG: CONCLUSIONS Nondiagnostic stress testing Dr. Arnold Winter MD (Electronically Signed) Final Date: 02 July 2024 18:33
== END | disposition home or self-care (01) ==
LOC: RADNMMAIN 08:17
PROVIDERS: ATTEND Internal Medicine
DX: I21.4 Non-ST elevation (NSTEMI) myocardial infarction (principal)
CPT/HCPCS: 93017; 78452; A9500; J2785

== ENCOUNTER → 2024-08-20 | Outpatient (CLI) | payer MEDICARE ==
[2024-08-20 18:49] LABS: Basophils # (A) 0.05 X 10*3/uL (0.00-0.10); Basophils % (A) 0.8 %; Eosinophils # (A) 0.07 X 10*3/uL (0.04-0.35); Eosinophils % (A) 1.2 %; HCT 41.9 % (37.2-46.3); HGB 13.3 g/dL (12.0-15.0); Lymphocytes # (A) 1.81 X 10*3/uL (0.90-5.00); Lymphocytes % (A) 30.7 %; MCH 29.2 pg (27.0-32.0); MCHC 31.7 g/dL (32.0-37.0); MCV 92.1 FL (80.0-97.0); Mean Platelet Volume 11.8 FL (9.5-12.2); Monocytes # (A) 0.31 X 10*3/uL (0.20-1.00); Monocytes % (A) 5.3 %; NRBC Per 100 WBC 0 X 10*3/uL (0.00-0.01); Neutrophils # (A) 3.64 X 10*3/uL (1.80-7.70); Neutrophils % (A) 61.8 %; Platelet Count 284 X 10*3/uL (140-440); RBC 4.55 X 10*6/uL (4.10-5.20); RDW 13.8 % (11.5-14.5); WBC 5.89 X 10*3/uL (4.50-10.00)
[2024-08-20 19:10] LABS: Chol/HDL Ratio 3.49 Ratio
[2024-08-20 19:11] LABS: ALT 17 U/L (8-44); AST 25 U/L (13-35); Albumin 4.4 g/dL (3.8-4.9); Albumin/Globulin Ratio 1.76 Ratio (1.60-3.17); Alkaline Phosphatase 115 U/L (41-126); BUN/Creat Ratio 8.75 Ratio (12.00-20.00); Calcium 9.7 mg/dL (8.7-10.3); Carbon Dioxide 25.9 mmol/L (21.6-31.8); Chloride 103 mmol/L (96-109); Globulin 2.5 g/dL (1.6-3.3); Glucose 90 mg/dL (70-110); LDL Cholesterol,Calculated 88.4 mg/dL (0.0-131.0); Potassium 5.2 mmol/L (3.5-5.5); Sodium 141 mmol/L (135-145); Total Bilirubin 0.3 mg/dL (0.3-1.2); Total Protein 6.9 g/dL (6.2-8.2); Uric Acid 3.9 mg/dL (2.9-7.7)
== END | disposition home or self-care (01) ==
LOC: LABWHC1 11:43
PROVIDERS: ATTEND Internal Medicine
DX: Z00.00 Encounter for general adult medical examination without abnormal findings (principal); M81.0 Age-related osteoporosis without current pathological fracture; N20.0 Calculus of kidney
CPT/HCPCS: 36415; 80053; 80061; 82306; 83735; 84443; 84550; 85025

== ENCOUNTER → 2024-08-23 | Day surgery (SDC) | payer MEDICARE ==
[2024-08-19 09:23] VITALS: BMI 21.9
[~2024-08-23] MED LIST changes: +ALPRAZolam 0.25 MG TAB PO PRN; +ALPRAZolam 0.5 MG TAB PO PRN; +ATORVASTATIN 80 MG TAB PO STA; +NITROGLYCERIN SL TABS 0.4 MG TAB SUBLINGUAL PRN; -REGADENOSON 0.4 MG/5 ML SYRINGE IV PRN; +RX INFO: IV CONTRAST WAS GIVEN 1 EACH MISC MISCELLANE PRN; +SODIUM CHLORIDE 0.9% 1,000 ML IV SCH
[2024-08-23] MEDS: ASPIRIN 325 MG TAB PO STA (09:23)
[2024-08-23] MEDS: SODIUM CHLORIDE 0.9% 1,000 ML in EMPTY BAG 1 BAG IV SCH (09:23)
[2024-08-23] MEDS: IV FLUID CONTINUATION 1,000 ML IV ONE (09:29)
[2024-08-23 09:49] VITALS: TEMP 97.7
[2024-08-23] MEDS: HEPARIN SODIUM,PORCINE 10,000 UNIT in SODIUM CHLORIDE 0.9% 1,000 ML IRRIGATION PRN (11:29)
[2024-08-23] MEDS: HEPARIN SODIUM,PORCINE (1 ML) 2,500 UNIT in SODIUM CHLORIDE 0.9% 250 ML IRRIGATION PRN (11:29)
[2024-08-23] MEDS: fentaNYL (PF) 50 MCG/ML 2 ML AMP IVP ONE (11:30)
[2024-08-23] MEDS: MIDAZOLAM 2 MG/2 ML VIAL IVP ONE (11:30)
[2024-08-23] MEDS: LIDOCAINE 1% INJ 10MG/ML (20 ML MDV) SQ ONE ×2 (11:31→11:32)
[2024-08-23] MEDS: VERAPAMIL SYRINGE (5 MG/10 ML) INTRAARTER ONE (11:31)
[2024-08-23] MEDS: HEPARIN SODIUM 1,000 UN/ML (10ML VL) IVP ONE (11:36)
[2024-08-23] MEDS: IOPAMIDOL-370 100ML BTL INJ ONE (11:42)
[2024-08-23 14:00] VITALS: BP 103/71; PULSE 72; RESP 16
--- NOTE | 2024-08-23 19:20 | CC ---
CARDIAC CATHETERIZATION REPORT INDICATIONS: Chest pain with abnormal stress test. PROCEDURE NOTE: After obtaining informed consent, left heart catheterization and coronary angiogram were performed via the right radial artery using standard Ferny catheters. The patient tolerated the procedure well without any obvious immediate complications. Total sedation time was 10 minutes. Right radial artery access was obtained using Seldinger technique; 6-Paragu[place] sheath was placed. Catheters and wires were floated into the ascending aorta under fluoroscopic guidance. The patient received verapamil and heparin per protocol. A TR band will be used for hemostasis. FINDINGS: 1. Hemodynamics: a. Left ventricular end-diastolic pressure is 12 mm. b.There is no significant gradient across the aortic valve. 2. Left ventriculogram: a. Left ventriculogram is not performed. 3. Angiographic data: a.Right coronary artery: Right coronary artery is a large dominant vessel and is free of significant stenosis. b.Left main coronary artery is a normal-sized vessel and is free of significant disease, divides into left anterior descending coronary artery and circumflex coronary artery. LAD and its branches and circumflex coronary artery and its branches are free of significant stenosis. CONCLUSIONS: 1. Normal coronary arteries. 2. Normal left ventricular end-diastolic pressure. PLAN: I reviewed angiographic data with the patient and told her that her symptoms are noncardiac in origin and the stress test is a false-positive stress test. MMODL / IJN: [id number] /
--- NOTE | 2024-08-23 19:23 | LTR ---
Dear Anmol: I performed cardiac catheterization on Renea Bernstein. A detailed catheterization note is enclosed for your records. In brief, the cardiac catheterization did not reveal significant obstructive CAD. I believe her symptoms are noncardiac in origin and the stress test is a false-positive stress test. Thank you for giving me the privilege for participating in the care of this pleasant lady. MMPRAKASH / CHRISTOPHER: [phone] /
== END ==
LOC: CATHCVL 08:55
PROVIDERS: ATTEND Internal Medicine Cardiovascular Disease
DX: I25.10 Atherosclerotic heart disease of native coronary artery without angina pectoris (principal); F32.A Depression, unspecified; E78.2 Mixed hyperlipidemia; F17.290 Nicotine dependence, other tobacco product, uncomplicated; Z79.899 Other long term (current) drug therapy
CPT/HCPCS: 93458; 99152; J2250; J1644 ×3; J2003; J3010; Q9967

== ENCOUNTER → 2024-09-02 | Outpatient (CLI) | payer MEDICARE, OTHER ==
--- NOTE | 2024-09-02 13:23 | CTL ---
EXAMINATION TYPE: CT Low Dose Lung DATE OF EXAM ORDERED: 09/02/2024 COMPARISON: 08/28/2023 CLINICAL INDICATION: Female, 59 years old with history of Z12.31 SCR MAMMO M81.0 AGE RELATED OSTEO Z1 2.2; PHH, Lung CA screening, Lung cancer screening, History of Smoking/tobacco use. TECHNIQUE: Low dose computed tomography scan was performed through the chest at 1 mm thick sections a nd reconstructed images in multiple planes at 1 mm and [address] DLP: 54.[address] CTDI: 1.5 mGy Automated exposure control for dose reduction was used. CT DIAGNOSTIC QUALITY: Satisfactory EXAMINATION TYPE: CT Low Dose Lung DATE OF EXAM ORDERED: 09/02/2024 CLINICAL INDICATION: Female, 59 years old with history of Z12.31 SCR MAMMO M81.0 AGE RELATED OSTEO Z1 2.2, history of tobacco use, Lung cancer screening CT DLP: 54.[address] CTDI: 1.5 mGy Automated exposure control for dose reduction was used. Comparison: None TECHNIQUE: Low dose computed tomography scan was performed through the chest at 1 mm thick sections a nd reconstructed images in multiple planes at 1 mm and [address] DIAGNOSTIC QUALITY: Satisfactory FINDINGS: There is a stable 6 mm nodule in the left lower lobe laterally. There is a stable 6 mm nodule in the right middle lobe. There are a few scattered micronodules. There is no new or suspicious lung mass or nodule. There is a calcified granuloma in the right middle lobe. There is no airspace consolidation or abnormal interstitial density There is no mediastinal, hilar or axillary adenopathy. There is 4.2 cm dilatation of the ascending thoracic aorta. There is no pleural effusion, pleural thickening or pneumothorax. No focal osseous lesions are seen. Limited scans the upper abdomen reveals no gross abnormality IMPRESSION: 1. Lung rads Category 2 benign. Continue routine screening at yearly intervals. 2. No acute cardiopulmonary disease. 3. 4.2 cm dilatation of the ascending thoracic aorta. [facility], , 09/02/2024 1:21 PM
--- NOTE | 2024-09-02 14:42 | BD ---
EXAMINATION TYPE: Axial Bone Density DATE OF EXAM: 09/02/2024 CLINICAL HISTORY: 59 years old Female. ICD-10 CODE: M810 OSTEO , Additional History: Height: 62 Weight: 125.2 FRAX RISK QUESTIONS: Alcohol (3 or more units per day): no Family History (Parent hip fracture): no Glucocorticoids (More than 3mos): no (Ex: prednisone, prednisolone, methylprednisolone, dexamethasone, and hydrocortisone). History of Fracture in Adulthood: no Secondary Osteoporosis: 1. Type 1 Diabetes: no 2. Hyperthyroidism: no 3. Menopause before 45: no 4. Malnutrition: no 5. Chronic liver disease: no Rheumatoid Arthritis: no Current Tobacco Use: no RISK FACTORS HISTORY OF: Surgery to Spine/Hip(right/left)/Wrist (right/left): no EXAM MEASUREMENTS: Bone mineral densitometry was performed using the [employer] System. Bone mineral density as measured about the Lumbar spine is: ----- L1-L4(G/cm2): 0.801 T Score Values are as follows: ----- L1: -3.0 ----- L2: -3.0 ----- L3: -3.6 ----- L4: -3.2 ----- L1-L4: -3.2 Z Score Values are as follows: ----- L1: -1.5 ----- L2: -1.4 ----- L3: -2.0 ----- L4: -1.6 ----- L1-L4: -1.6 Bone mineral density has: decreased -12.0 % since study of: 08.01.2019 Bone mineral density about the R hip (g/cm2): 0.657 Bone mineral density about the L hip (g/cm2): 0.715 T Score values are as follows: -----R Neck: -2.9 -----L Neck: -2.9 -----R Total: -2.8 -----L Total: -2.3 Z Score values are as follows: -----R Neck: -1.4 -----L Neck: -1.4 -----R Total: -1.6 -----L Total: -1.1 Bone mineral density has: decreased -12.1 % since study of: 2.2.2019 FRAX%s: The graph provided illustrates a 13.9% chance for a major osteoporotic fx and a 3.7% chance f or the hips probability for fx in 10 years time. IMPRESSION: Osteoporosis (T Score less than -2.5). There is increased fracture risk and therapy is usually indicated based on age. Re-Screen 1-2 years. NOTE: T-SCORE=SD OF THE YOUNG ADULT MEAN. [facility], , 09/02/2024 2:39 PM
--- NOTE | 2024-09-02 15:44 | MM ---
Reason for Exam: Screening (asymptomatic). Last mammogram was performed 1 year(s) and 2 month(s) ago. Patient History: Menarche at age 10. First Full-Term at age 17. Postmenopausal. 05/31/2022, Benign US biopsy breast VAD RT on the right side. Risk Values: Zee 5 year model risk: 1.3%. NCI Lifetime model risk: 6.1%. Prior Study Comparison: 05/31/2022 Right MG diagnostic mammo RT wo CAD, [facility]. 12/26/2022 Right MG 3D diag mammo w/cad RT, [facility]. 07/15/2023 Bilateral MG 3D screening mammo w/cad, [facility]. Tissue Density: The breasts are heterogeneously dense, which may obscure small masses. Findings: Analyzed By CAD. Unchanged global asymmetry posterior upper outer quadrant left breast. Microclip right breast from prior biopsy. There is no suspicious group of microcalcifications or new suspicious mass in either breast. Overall Assessment: Benign, BI-RAD 2 Management: Screening Mammogram of both breasts in 1 year. Patient should continue monthly self-breast exams. A clinical breast exam by your physician is recommended on an annual basis. This exam should not preclude additional follow-up of suspicious palpable abnormalities. Note on Zee scores and lifetime risk: 1. A Zee score greater than 3% is considered moderate risk. If this is the case, consider specialist referral to assess eligibility for a risk reducing agent. 2. If overall lifetime risk for the development of breast cancer is 20% or higher, the patient may qualify for future screening with alternating mammogram and breast MRI. [facility], , 09/02/2024 3:41 PM. Electronically signed and approved by: Debra Myers M.D. Radiologist
== END | disposition home or self-care (01) ==
LOC: RADCTMAIN 12:24
PROVIDERS: ATTEND Internal Medicine
DX: Z12.31 Encounter for screening mammogram for malignant neoplasm of breast (principal); Z12.2 Encounter for screening for malignant neoplasm of respiratory organs; R92.333 Mammographic heterogeneous density, bilateral breasts; M81.0 Age-related osteoporosis without current pathological fracture
CPT/HCPCS: 71271; 77063; 77067; 77080

== ENCOUNTER → 2024-11-09 | Outpatient (CLI) | payer MEDICARE, OTHER ==
--- NOTE | 2024-11-09 15:50 | XR ---
EXAMINATION TYPE: XR wrist complete 4 views LT XR hand complete 3 views LT XR finger 3 views (fifth digit) LT DATE OF EXAM: 11/09/2024 3:42 PM COMPARISON: None CLINICAL INDICATION: Female, 59 years old with history of M79.642 PAIN IN LEFT HAND; PHH, pain FINDINGS: Wrist: Radiocarpal and distal radial ulnar joint as well as the midcarpal compartment appear intact. No acut e fracture, dilatation, or dislocation. Hand: Moderate degenerative change first CMC joint with joint space narrowing and marginal spurring. Mild j oint space narrowing also present at the first MCP joint. Moderate to severe degenerative change seco nd DIP joint. Fifth finger: There is a minimally comminuted oblique fracture fifth metacarpal shaft with slight radial and palmar angulation and minimal 2 mm of palmar displacement. IMPRESSION (left wrist, hand, and fifth finger): 1. Comminuted, oblique fracture fifth metacarpal shaft with slight radial and palmar angulation and m inimal 2 mm of palmar displacement. 2. 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 [facility], , 11/09/2024 3:48 PM
== END | disposition home or self-care (01) ==
LOC: RADXRMAIN 15:24
PROVIDERS: ATTEND Internal Medicine
DX: M19.042 Primary osteoarthritis, left hand (principal); S62.327A Displaced fracture of shaft of fifth metacarpal bone, left hand, initial encounter for closed fracture

== ENCOUNTER 2024-11-10 10:23 | Emergency (ER) | payer MEDICARE, OTHER ==
--- NOTE | 2024-11-10 11:59 | ED ---
General Adult HPI - General Chief complaint: Extremity Injury, Upper Stated complaint: L Hand Injury Time Seen by Provider: 11/10/24 10:37 Source: patient, RN notes reviewed Mode of arrival: ambulatory Limitations: no limitations - History of Present Illness Initial comments: 59-year-old female presents to the emergency department for evaluation of left hand pain. Patient states that she fell 2 weeks ago. She states that she tripped and fell. She injured her hand. She states that following this she was utilizing an Daniele wrap along with icing and elevating the hand. She went for an outpatient x-ray yesterday after her visit with her primary care provider. She was called to come to the emergency department today due to the findings of the x-ray. As she reports that the pain has improved since the injury. Denies any numbness, tingling. - Related Data Home Medications Medication Instructions Recorded Confirmed Albuterol Inhaler [Ventolin Hfa 1 - 2 puff INHALATION Q6H PRN 07/21/24 08/19/24 Inhaler] Aspirin EC [Ecotrin Low Dose] 81 mg PO DAILY 07/21/24 08/23/24 Atorvastatin [Lipitor] 40 mg PO HS 07/21/24 08/23/24 Desvenlafaxine Succinate [Pristiq 50 mg PO DAILY 07/21/24 08/23/24 ER] Fexofenadine/Pseudoephedrine 1 tab PO DAILY PRN 07/21/24 08/19/24 [Brianna-D 24 Hour Tablet] Fluticasone Nasal [place] [Flonase 1 dose INHALATION DAILY PRN 07/21/24 08/23/24 Nasal [place]] Previous Rx's Medication Instructions Recorded Cyclobenzaprine [Flexeril] 10 mg PO TID PRN #15 tab 01/16/24 Allergies Allergy/AdvReac Type Severity Reaction Status Date / Time No Known Allergies Allergy Verified 11/10/24 10:31 Review of Systems ROS Statement: Those systems with pertinent positive or pertinent negative responses have been documented in the HPI. ROS Other: All systems not noted in ROS Statement are negative. Past Medical History Past Medical History: COPD, GERD/Reflux Additional Past Medical History / Comment(s): See scanned H&P History of Any Multi-Drug Resistant Organisms: None Reported Past Surgical History: Orthopedic Surgery, Tubal Ligation Additional Past Surgical History / Comment(s): Right foot surgery Past Anesthesia/Blood Transfusion Reactions: No Reported Reaction Past Psychological History: Anxiety, Depression Smoking Status: Former smoker Past Alcohol Use History: None Reported Past Drug Use History: None Reported - Past Family History Father Family Medical History: Myocardial Infarction (CT) Mother Family Medical History: Diabetes Mellitus General Exam Limitations: no limitations General appearance: alert, in no apparent distress Head exam: Present: atraumatic, normocephalic, normal inspection Eye exam: Present: normal appearance, PERRL, EOMI. Absent: scleral icterus, conjunctival injection, periorbital swelling ENT exam: Present: normal exam, mucous membranes moist Respiratory exam: Present: normal lung sounds bilaterally. Absent: respiratory distress, wheezes, rales, rhonchi, stridor Cardiovascular Exam: Present: regular rate, normal rhythm, normal heart sounds. Absent: systolic murmur, diastolic murmur, rubs, gallop, clicks Extremities exam: Present: full ROM, normal capillary refill, other (Slight deformity to the medial dorsal hand). Absent: tenderness, pedal edema, joint swelling, calf tenderness Back exam: Present: normal inspection Neurological exam: Present: alert, oriented X3 Psychiatric exam: Present: normal affect, normal mood Skin exam: Present: warm, dry, intact, normal color. Absent: rash Course Vital Signs 11/10/24 11/10/24 10:29 12:17 Temperature 97.8 F 97.9 F Pulse Rate 62 72 Respiratory 18 20 Rate Blood Pressure 130/88 136/76 O2 Sat by Pulse 95 99 Oximetry Medical Decision Making - Medical Decision Making Was pt. sent in by a medical professional or institution (Dr. PA, FISH HATCHERY ASSISTANT, urgent care, hospital, or alf...) When possible be specific @ -[No] Did you speak to anyone other than the patient for history (EMS, parent, family, police, friend...)? What history was obtained from this source @ -[No] Did you review nursing and triage notes (agree or disagree)? Why? @ -[I reviewed and agree with nursing and triage notes] Were old charts reviewed (outside hosp., previous admission, EMS record, old EKG, old radiological studies, urgent care reports/EKG's, alf records)? Report findings @ -[I reviewed the x-ray images and report from yesterday's outpatient visit] Differential Diagnosis (chest pain, altered mental status, abdominal pain women, abdominal pain men, vaginal bleeding, weakness, fever, dyspnea, syncope, headache, dizziness, GI bleed, back pain, seizure, CVA, palpatations, mental health, musculoskeletal)? @ -[Differential Musculoskeletal Muscular strain, contusion, ligament sprain, fracture, arthritis, septic arthritis, bursitis, cellulitis, muscle spasm, nerve compression, DVT, arterial occlusion, herpes zoster, electrolyte abnormality, tumor.... This is not meant to be in all inclusive list] EKG interpreted by me (3pts min.). @ -[As above] X-rays interpreted by me (1pt min.). @ -[None done] CT interpreted by me (1pt min.). @ -[None done] U/S interpreted by me (1pt. min.). @ -[None done] What testing was considered but not performed or refused? (CT, X-rays, U/S, labs)? Why? @ -[None] What meds were considered but not given or refused? Why? @ -[None] Did you discuss the management of the patient with other professionals (professionals i.e. , PA, FISH HATCHERY ASSISTANT, lab, RT, psych nurse, oncology social work, general dentist, teacher, mounted police officer, human services case manager)? Give summary @ -[No] Was smoking cessation discussed for >3mins.? @ -[No] Was critical care preformed (if so, how long)? @ -[No] Were there social determinants of health that impacted care today? How? (Homelessness, low income, unemployed, alcoholism, drug addiction, transportat ion, low edu. Level, literacy, decrease access to med. care, assisted, rehab)? @ -[No] Was there de-escalation of care discussed even if they declined (Discuss DNR or withdrawal of care, Hospice)? DNR status @ -[No] What co-morbidities impacted this encounter? (DM, HTN, Smoking, COPD, CAD, Cancer, CVA, ARF, Chemo, Hep., AIDS, mental health diagnosis, sleep apnea, morbid obesity)? @ -[None] Was patient admitted / discharged? Hospital course, mention meds given and route, prescriptions, significant lab abnormalities, going to OR and other pertinent info. @ -[hospital course] Undiagnosed new problem with uncertain prognosis? @ -[No] Drug Therapy requiring intensive monitoring for toxicity (Heparin, Nitro, Insulin, Cardizem)? @ -[No] Were any procedures done? @ -[No] Diagnosis/symptom? @ -[default] Acute, or Chronic, or Acute on Chronic? @ -[default] Uncomplicated (without systemic symptoms) or Complicated (systemic symptoms)? @ -[default] Side effects of treatment? @ -[No] Exacerbation, Progression, or Severe Exacerbation? @ -[No] Poses a threat to life or bodily function? How? (Chest pain, USA, CT, pneumonia, PE, COPD, DKA, ARF, appy, cholecystitis, CVA, Diverticulitis, Homicidal, Suicidal, threat to staff... and all critical care pts) @ -[No] Disposition Clinical Impression: Closed fracture of 5th metacarpal Disposition: HOME SELF-CARE Condition: Stable Instructions (If sedation given, give patient instructions): Hand Fracture (ED) Additional Instructions: Please follow-up with orthopedics. Return to the emergency department for new or worsening symptoms Is patient prescribed a controlled substance at d/c from ED?: No Referrals: Anmol Harris DO [Primary Care Provider] - 1-2 days Clif Page DO [Doctor of Osteopathic Medicine] - 1-2 days
[2024-11-10 12:18] VITALS: BP 136/76; PULSE 72; RESP 20; TEMP 97.9
== END 2024-11-10 12:18 | disposition home or self-care (01) ==
LOC: EC 10:23
DX: S62.307A Unspecified fracture of fifth metacarpal bone, left hand, initial encounter for closed fracture (principal); Z87.891 Personal history of nicotine dependence; W01.0XXA Fall on same level from slipping, tripping and stumbling without subsequent striking against object, initial encounter
CPT/HCPCS: 99283